=== PATIENT | male | born 1990 | race African-American/Black ===

== ENCOUNTER 2017-10-27 20:50 | Emergency (ER) | payer OTHER ==
[2017-10-27] MEDS ORDERED: IBUPROFEN 600 MG TABLET PO ONE (21:07)
[2017-10-27] MEDS ORDERED: ACETAMINOPHEN 325 MG TABLET PO ONE (21:08)
--- NOTE | 2017-10-27 21:12 | ER Document Report ---
ED GI/ - General Chief Complaint: Testicular Problem Stated Complaint: TESTICLE PAIN Time Seen by Provider: 10/27/17 21:03 Notes: The patient is a 27-year-old male who presents with 30 minutes of right-sided testicular pain and swelling that started after he was bowling tonight. He has never had this before. He had unprotected intercourse 2 weeks ago, but denies penile discharge, hematuria or dysuria. TRAVEL OUTSIDE OF THE [place] IN LAST 30 DAYS: No - Related Data Allergies/Adverse Reactions: shellfish derived Allergy (Verified 10/27/17 21:04) Past Medical History - General Information source: Patient - Social History Smoking Status: Current Every Day Smoker Chew tobacco use (# tins/day): No Frequency of alcohol use: None Drug Abuse: None Family History: Reviewed & Not Pertinent Patient has suicidal ideation: No Patient has homicidal ideation: No Renal/ Medical History: Denies: Hx Peritoneal Dialysis Review of Systems - Review of Systems Notes: REVIEW OF SYSTEMS: CONSTITUTIONAL: -fevers, -chills EENT: -eye pain, -difficulty swallowing, -nasal congestion CARDIOVASCULAR: -chest pain, -syncope. RESPIRATORY: -cough, -SOB GASTROINTESTINAL: -abdominal pain, -nausea, -vomiting, -diarrhea GENITOURINARY: -dysuria, -hematuria, +right testicular pain MUSCULOSKELETAL: -back pain, -neck pain SKIN: -rash or skin lesions. HEMATOLOGIC: -easy bruising or bleeding. LYMPHATIC: -swollen, enlarged glands. NEUROLOGICAL: -altered mental status or loss of consciousness, -headache, - neurologic symptoms PSYCHIATRIC: -anxiety, -depression. ALL OTHER SYSTEMS REVIEWED AND NEGATIVE. Physical Exam - Vital signs Vitals: Temp Pulse Resp BP Pulse Ox 99.3 F 81 20 150/96 H 98 10/27/17 20:58 10/27/17 20:58 10/27/17 20:58 10/27/17 20:58 10/27/17 20:58 - Notes Notes: PHYSICAL EXAMINATION: GENERAL: Well-appearing, well-nourished and in no acute distress. HEAD: Atraumatic, normocephalic. EYES: Pupils equal round and reactive to light, extraocular movements intact, sclera anicteric, conjunctiva are normal. ENT: nares patent, oropharynx clear without exudates. Moist mucous membranes. NECK: Normal range of motion, supple without lymphadenopathy LUNGS: Breath sounds clear to auscultation bilaterally and equal. No wheezes rales or rhonchi. HEART: Regular rate and rhythm without murmurs ABDOMEN: Soft, nontender, normoactive bowel sounds. No guarding, no rebound. No masses appreciated. : Tenderness over right testicle, normal lie of right testicle. No tenderness over epididymis. No hernia palpated. No penile discharge or lesions. EXTREMITIES: Normal range of motion, no pitting or edema. No cyanosis. NEUROLOGICAL: Cranial nerves grossly intact. Normal speech, normal gait. Normal sensory and motor exams. PSYCH: Normal mood, normal affect. SKIN: Warm, Dry, normal turgor, no rashes or lesions noted. Course - Re-evaluation Re-evalutation: With sudden onset of right testicular pain, concern for torsion, although the testicle has normal lie and he had normal cremasteric reflexes. His ultrasound does not show any evidence of torsion, epididymitis or masses. Instructed him about anti-inflammatories, scrotal support and if his gonorrhea/chlamydia urine is positive tomorrow, he will receive a call. Given strict return precautions and he understands. - Vital Signs Vital signs: Temp Pulse Resp BP Pulse Ox 99.3 F 81 20 150/96 H 98 10/27/17 20:58 10/27/17 20:58 10/27/17 20:58 10/27/17 20:58 10/27/17 20:58 - Laboratory Laboratory results interpreted by me: 10/27/17 21:13 Urine Urobilinogen 4.0 H - Diagnostic Test Radiology reviewed: Image reviewed, Reports reviewed Radiology results interpreted by me: Scrotal US: Normal Discharge - Discharge Clinical Impression: Testicular pain, right Condition: Stable Disposition: HOME, SELF-CARE Additional Instructions: Your ultrasound does not show any evidence of testicular torsion or mass. Wear a jock strap or briefs and take anti-inflammatories, such as Motrin or Naprosyn , to help with your pain. Follow-up with the urologist if not better. Forms: Elevated Blood Pressure Referrals: [facility] [Provider Group] - Follow up as needed
[2017-10-27 21:49] LABS: APPEARANCE,URINE CLEAR; BILIRUBIN,URINE NEGATIVE (NEGATIVE); COLOR,URINE YELLOW; GLUCOSE, URINE NEGATIVE (NEGATIVE); KETONES,URINE NEGATIVE (NEGATIVE); LEUKOCYTE ESTERASE,URINE NEGATIVE (NEGATIVE); NITRITE,URINE NEGATIVE (NEGATIVE); PROTEIN,URINE NEGATIVE (NEGATIVE); URINE SPECIFIC GRAVITY 1.027
--- NOTE | 2017-10-27 22:17 | RADIOLOGY REPORT (SQ) ---
EXAM DESCRIPTION: U/S SCROTUM W/DOPPLER COMPLETED DATE/TIME: 10/27/2017 10:01 pm REASON FOR STUDY: right testicular pain COMPARISON: None. TECHNIQUE: Static and realtime zamora scale imaging of the scrotum and testes. Selected color Doppler and spectral images recorded to document blood flow. LIMITATIONS: None. FINDINGS: RIGHT: TESTICLE: Normal size. Normal echotexture. Normal blood flow. No mass. EPIDIDYMIS: Normal. HYDROCELE OR VARICOCELE: No. HERNIA OR EXTRA-TESTICULAR MASS: No. OTHER: No other significant finding. LEFT: TESTICLE: Normal size. Normal echotexture. Normal blood flow. No mass. EPIDIDYMIS: Normal. HYDROCELE OR VARICOCELE: No. HERNIA OR EXTRA-TESTICULAR MASS: No. OTHER: No other significant finding. IMPRESSION: NO EVIDENCE OF TESTICULAR MASS OR TORSION. TECHNICAL DOCUMENTATION: JOB ID: [id number] [place]-72 2010 [employer]- All Rights Reserved
[2017-10-27 22:27] VITALS: BP 138/87
[2017-10-27 23:22] LABS: CHLAM PCR NOT DETECTED (NOT DETECT); GON PCR NOT DETECTED (NOT DETECT)
== END 2017-10-27 22:27 | disposition home or self-care (01) ==
LOC: ER 20:50
DX: N50.811 Right testicular pain (principal); F17.200 Nicotine dependence, unspecified, uncomplicated
CPT/HCPCS: 76870; 81001; 87491; 87591; 93976; 99284

== ENCOUNTER 2020-02-20 04:45 | Observation (INO) | payer SELFPAY ==
[2020-02-20] MEDS ORDERED: HYDROMORPHONE HCL INJ/PF 2 MG/ML AMPULE IV ONE (05:13)
[2020-02-20] MEDS ORDERED: ONDANSETRON HCL INJ/PF 4 MG/2 ML SDV IV ONE (05:13)
[2020-02-20] MEDS ORDERED: MIDAZOLAM 2 MG/2 ML INJ IV ONE (05:14)
[2020-02-20] MEDS ORDERED: MIDAZOLAM 2 MG/2 ML INJ ONE ×2 (05:15→15:33)
--- NOTE | 2020-02-20 05:22 | RADIOLOGY REPORT (SQ) ---
EXAM DESCRIPTION: XR HAND 3 OR MORE VIEWS COMPLETED DATE/TME: 02/20/2020 00:00 CLINICAL HISTORY: 29 years, Male, POSITIVE DEFORMITY COMPARISON: None. NUMBER OF VIEWS: 3 TECHNIQUE: 3 views of the right hand LIMITATIONS: None. FINDINGS: There is posterior dislocation of the second through fifth metacarpals, at the level of the carpal metacarpal joint space. Comminuted fracture at the base of the second metacarpal. Associated soft tissue swelling. IMPRESSION: Posterior dislocation of the second through fifth metacarpals. Fracture of the base of the second metacarpal. copyright 2010 [employer]- All Rights Reserved
[2020-02-20] MEDS ORDERED: ETOMIDATE INJ/PF 20 MG/10 ML SDV IV ONE (05:37)
--- NOTE | 2020-02-20 05:53 | ER Document Report ---
Entered by SAMAN ÓLPEZ SCRIBE 02/20/20 0541 Acting as scribe for:WARNER AMBROSIO IV, MD ED Hand/Wrist Injury - General Chief Complaint: Hand Injury Stated Complaint: RIGHT HAND INJURY/CANT FEEL FINGERS Time Seen by Provider: 02/20/20 05:13 Mode of Arrival: Ambulatory Information source: Patient Notes: This 29 year old male patient presents to the ED today with complaints of right hand injury that occurred around 0400 this morning. Patient states that he accid entally slammed his right hand into a truck door. He reports pain to his right hand and states that it looks deformed. He also notes numbness to his right hand and that his fingertips feel cold. He admits that he attempted to reduce the deformity on his own prior to arrival without success. Patient is right hand dominant. TRAVEL OUTSIDE OF THE [place] IN LAST 30 DAYS: No - Related Data Allergies/Adverse Reactions: shellfish derived Allergy (Verified 10/27/17 21:04) Past Medical History - General Information source: Patient, [facility], [facility] Records - Social History Smoking Status: Current Every Day Smoker Cigarette use (# per day): Yes Chew tobacco use (# tins/day): No Smoking Education Provided: No Frequency of alcohol use: Social Drug Abuse: None Family History: Reviewed & Not Pertinent Patient has suicidal ideation: No Patient has homicidal ideation: No Review of Systems - Review of Systems Constitutional: No symptoms reported EENT: No symptoms reported Cardiovascular: No symptoms reported Respiratory: No symptoms reported Gastrointestinal: No symptoms reported Genitourinary: No symptoms reported Male Genitourinary: No symptoms reported Musculoskeletal: See HPI, Deformity - Right hand, Other - Right hand pain Skin: No symptoms reported Hematologic/Lymphatic: See HPI, Other - Abrasion Neurological/Psychological: No symptoms reported -: Yes All other systems reviewed and negative Physical Exam - Vital signs Vitals: Temp 98 F 02/20/20 05:01 - General General appearance: Alert In distress: None - HEENT Head: Normocephalic, Atraumatic Eyes: Normal Pupils: PERRL - Respiratory Respiratory status: No respiratory distress Chest status: Nontender Breath sounds: Normal Chest palpation: Normal - Cardiovascular Rhythm: Regular Heart sounds: Normal auscultation Murmur: No Friction rub: No Gallop: None auscultated Pulses: Normal: Radial - 2+ Normal capillary refill: Yes - < 2 seconds in all digits of right hand - Abdominal Inspection: Normal Distension: No distension Bowel sounds: Normal Tenderness: Nontender - Abdomen soft Organomegaly: No organomegaly - Back Back: Normal, Nontender - Extremities General lower extremity: Normal inspection Hand: Abrasion - Right 2nd digit, Deformity - Obvious deformity noted to dorsal surface of right hand - Neurological Neuro grossly intact: Yes Orientation: AAOx4 - Psychological Associated symptoms: Normal affect, Normal mood - Skin Skin irregularity: other - Abrasion noted to right 2nd digit Course - Re-evaluation Re-evalutation: 02/20/20 05:53 Findings of ED MSE discussed with patient. Patient informed that he would be admitted to the orthopedic service for his hand fracture. - Vital Signs Vital signs: Temp Pulse Resp BP Pulse Ox 98 F 98 20 155/98 H 96 02/20/20 05:01 02/20/20 05:24 02/20/20 05:41 02/20/20 05:41 02/20/20 05:41 - Laboratory Result Diagrams: 02/20/20 05:54 02/20/20 05:54 Laboratory results interpreted by me: 02/20/20 05:54 WBC 11.2 H - Diagnostic Test Radiology reviewed: Reports reviewed - EKG Interpretation by Me Additional EKG results interpreted by me: 02/20/20 06:13 EKG obtained on 02/20/2020 at 0554 hrs. was interpreted by this MD. Findings: Rate 94, left bundle branch block is present. No prior EKG is available for comparison. Impression EKG with rate of 94 and left bundle branch block of unknown chronicity - Consults dr. duarte Time consulted: 05:40 - dr. duarte agreed to admit pt, Reason for consultation: 02/20/20 05:56 right hand fracture/dislocation dr. joleen duarte Time consulted: 06:00 - dr. duarte requested cardiology consultation Reason for consultation: 02/20/20 06:[address] duarte of ekg findings (LBBB) dr. roslyn benites Time consulted: 06:05 - dr. benites agreed to consult patient; stated that incidental finding of conduction abnormality without chest pain unlikely to increase perioperative risk. Reason for consultation: 02/20/20 06:07 LBBB on EKG - Transfer of Care Care transferred to following provider: dr. calhoun Procedures - Conscious Sedation Conscious sedation Time started: 05:24 Time completed: 05:40 Consent obtained: Yes Indication: fracture dislocation right hand Normal healthy pt.: P1. - ASA Classification Airway Evaluation: Normal anatomy Mallampati Classification: Class 1 Used during procedure: Suction available, IV access obtained, Pulse ox on pt., senior reactor operator on pt. Medications administered: Versed, Other - dilaudid Reversal agents: None I personally performed/intraservice time: Sedation, Procedure, 30 min or less Complications: No - Joint Reduction/Fracture Care Right Hand Time completed: 05:40 Consent obtained: Yes Conscious sedation: Yes Pre-procedure NV exam: Yes - nvi Fracture: Closed Post-procedure NV exam: Yes - nvi Reduction attempts: 2 - unsuccessful reduction attempts Complications: No Discharge - Discharge Clinical Impression: Left bundle branch block (LBBB) Closed right hand fracture Qualifiers: Encounter type: initial encounter Qualified Code(s): S62.91XA - Unspecified fracture of right wrist and hand, initial encounter for closed fracture Condition: Good Disposition: ADMITTED OBSERVATION Admitting Provider: dr. duarte, orthopedics Unit Admitted: Surgical Floor I personally performed the services described in the documentation, reviewed and edited the documentation which was dictated to the scribe in my presence, and it accurately records my words and actions.
--- NOTE | 2020-02-20 06:15 | RADIOLOGY REPORT (SQ) ---
EXAM DESCRIPTION: [facility]: XR CHEST 1 VIEW CLINICAL HISTORY: 29 years Male; pre-op; COMPARISON: None. FINDINGS: Lungs: Lungs are clear, with no focal infiltrate, pneumothorax, or pleural effusion. Mediastinum: Mediastinum is within normal limits for this positioning. Bones: Bony structures are unremarkable. IMPRESSION: 1. No acute pulmonary findings.
[2020-02-20 06:25] LABS: ABSOLUTE BASOPHILS # (AUTO) 0.1 10^3/uL (0.0-0.2); ABSOLUTE LYMPHOCYTES (AUTO) 2.4 10^3/uL (0.5-4.7); ABSOLUTE MONOCYTES (AUTO) 0.9 10^3/uL (0.1-1.4); ABSOLUTE NEUT (AUTO) 7.8 10^3/uL (1.7-8.2); BASOPHILS % (AUTO) 0.5 % (0-2); EOSINOPHILS % (AUTO) 0.4 % (0-6); HEMOGLOBIN 14.1 g/dL (13.5-17.0); LYMPHOCYTES % (AUTO) 21.8 % (13-45); MEAN CORPUSCULAR HEMOGLOBIN 31.6 pg (27.0-33.4); MEAN CORPUSCULAR HGB CONC 35.3 g/dL (32.0-36.0); MEAN CORPUSCULAR VOLUME 90 fl (80-97); MONOCYTES % (AUTO) 7.8 % (3-13); PLATELET COUNT 199 10^3/uL (150-450); RED BLOOD COUNT 4.47 10^6/uL (4.35-5.55); RED CELL DISTRIBUTION WIDTH 13.8 % (11.5-14.0); SEGMENTED NEUTROPHILS % (AUTO) 69.5 % (42-78); TOTAL CELLS COUNTED % (AUTO) 100 %; WHITE BLOOD COUNT 11.2 10^3/uL (4.0-10.5)
[2020-02-20 06:44] LABS: ALBUMIN 3.6 g/dL (3.5-5.0); ALKALINE PHOSPHATASE 51 U/L (38-126); ANION GAP 7 (5-19); ASPARTATE AMINO TRANSFERASE 31 U/L (17-59); BILIRUBIN,TOTAL 0.6 mg/dL (0.2-1.3); BLOOD UREA NITROGEN 8 mg/dL (7-20); CALCIUM 8.6 mg/dL (8.4-10.2); CARBON DIOXIDE 23 mmol/L (22-30); CHLORIDE 109 mmol/L (98-107); GLUCOSE 108 mg/dL (75-110); POTASSIUM 3.7 mmol/L (3.6-5.0)
--- NOTE | 2020-02-20 07:22 | EKG REPORT ---
SEVERITY:- ABNORMAL ECG - SINUS RHYTHM LEFT BUNDLE BRANCH BLOCK : Confirmed by: Casey Palumbo MD 20-Feb-2020 07:22:02
[2020-02-20] MEDS ORDERED: DEXTROSE 40% GEL 15 GM TUBE PO PRN ×2 (07:55)
[2020-02-20] MEDS ORDERED: DEXTROSE 50%-WATER 25 GM/50 ML DISP.SYRIN IV PRN ×2 (07:55)
[2020-02-20] MEDS ORDERED: GLUCAGON,HUMAN RECOMB 1 MG INJ SUBCUT PRN (07:55)
[2020-02-20] MEDS ORDERED: RINGERS SOLUTION,LACTATED 1,000 ML IV PRN (07:55)
--- NOTE | 2020-02-20 07:55 | PDOC H&P ---
History of Present Illness Admission Date/PCP: 02/20/20 06:05 Patient complains of: Right hand injury History of Present Illness: AVIVA TAI is a 29 year old male who early this morning sustained a crush injury to his right hand when he got hit in a truck door. Patient states he had a notable deformity attempted to reduce the deformity which was not successful. Presented emergency room where x-rays demonstrate dislocation. Patient was sedated and closed reduction was attempted but unsuccessful. Patient states his pain is 6/10. Denies numbness or tingling. Social History Smoking Status: Current Every Day Smoker Family History Family History: Reviewed & Not Pertinent Parental Family History Reviewed: No Children Family History Reviewed: No Sibling(s) Family History Reviewed.: No Medication/Allergy Home Medications: No Home Medications 10/27/17 Allergies/Adverse Reactions: shellfish derived Allergy (Verified 10/27/17 21:04) Review of Systems Constitutional: ABSENT: chills, fever(s), headache(s), weight gain, weight loss Eyes: ABSENT: visual disturbances Ears: ABSENT: hearing changes Cardiovascular: ABSENT: chest pain, dyspnea on exertion, edema, orthropnea, palpitations Respiratory: ABSENT: cough, hemoptysis Gastrointestinal: ABSENT: abdominal pain, constipation, diarrhea, hematemesis, hematochezia, nausea, vomiting Genitourinary: ABSENT: dysuria, hematuria Musculoskeletal: PRESENT: as per HPI Integumentary: ABSENT: rash, wounds Neurological: ABSENT: abnormal gait, abnormal speech, confusion, dizziness, focal weakness, syncope Psychiatric: ABSENT: anxiety, depression, homidical ideation, suicidal ideation Endocrine: ABSENT: cold intolerance, heat intolerance, menstrual abnormalities, polydipsia, polyuria Hematologic/Lymphatic: ABSENT: easy bleeding, easy bruising, lymphadenopathy Physical Exam Vital Signs: Temp Pulse Resp BP Pulse Ox 98 F 74 21 H 146/95 H 99 02/20/20 05:01 02/20/20 07:26 02/20/20 07:26 02/20/20 07:26 02/20/20 07:26 Intake & Output 02/19/20 02/20/20 02/21/20 06:59 06:59 06:59 Weight 85.729 kg General appearance: PRESENT: no acute distress, well-developed, well-nourished Head exam: PRESENT: atraumatic, normocephalic Eye exam: PRESENT: conjunctiva pink, EOMI, PERRLA. ABSENT: scleral icterus Ear exam: PRESENT: normal external ear exam Mouth exam: PRESENT: moist, tongue midline Neck exam: PRESENT: full ROM. ABSENT: carotid bruit, JVD, lymphadenopathy, thyromegaly Respiratory exam: PRESENT: unlabored Cardiovascular exam: PRESENT: RRR. ABSENT: diastolic murmur, rubs, systolic murmur Pulses: PRESENT: normal dorsalis pedis pul, +2 pedal pulses bilateral Vascular exam: PRESENT: normal capillary refill GI/Abdominal exam: PRESENT: normal bowel sounds, soft. ABSENT: distended, guarding, mass, organolmegaly, rebound, tenderness Rectal exam: PRESENT: deferred Musculoskeletal exam: PRESENT: other - Right hand: In volar resting splint. Intact flexion-extension of the IP joints however limited given immobilization. Compartment soft and compressible no sign of compartment syndrome. No pain with passive extension. Appropriate tenderness to palpation. Cap refill less than 2 seconds. Intact sensation to sharp versus dull touch. Neurological exam: PRESENT: alert, awake, oriented to person, oriented to place, oriented to time, oriented to situation, CN II-XII grossly intact. ABSENT: motor sensory deficit Psychiatric exam: PRESENT: appropriate affect, normal mood. ABSENT: homicidal ideation, suicidal ideation Skin exam: PRESENT: dry, intact, warm. ABSENT: cyanosis, rash Results Laboratory Results: 02/20/20 05:54 02/20/20 05:54 02/20/20 02/20/20 02/20/20 05:54 05:54 05:54 WBC 11.2 H RBC 4.47 Hgb 14.1 Hct 40.0 MCV 90 MCH 31.6 MCHC 35.3 RDW 13.8 Plt Count 199 Seg Neutrophils % 69.5 Sodium 138.8 Potassium 3.7 Chloride 109 H Carbon Dioxide 23 Anion Gap 7 BUN 8 Creatinine 0.79 Est GFR ( Amer) > 60 Glucose 108 Calcium 8.6 Total Bilirubin 0.6 AST 31 Alkaline Phosphatase 51 Total Protein 6.0 L Albumin 3.6 Blood Type AB POSITIVE Antibody Screen NEGATIVE 02/20/20 05:54 Troponin I < 0.012 Impressions: Hand X-Ray 02/20/20 00:00 IMPRESSION: Posterior dislocation of the second through fifth metacarpals. Fracture of the base of the second metacarpal. copyright 2011 [employer]- All Rights Reserved Chest X-Ray 02/20/20 05:48 IMPRESSION: 1. No acute pulmonary findings. Status: Image reviewed by me - I have reviewed patient's radiographs consistent with fracture dislocation of the second through fifth CMC joint with avulsion noted along the base of the second metacarpal. Assessment & Plan - Diagnosis (1) Carpometacarpal joint dislocation Qualifiers: Encounter type: initial encounter Laterality: right Qualified Code(s): S63.054A - Dislocation of other carpometacarpal joint of right hand, initial encounter Is this a current diagnosis for this admission?: Yes Plan: Patient sustained a significant second through fifth carpometacarpal fracture dislocation. Given the amount of displacement and unsuccessful treatment with close reduction I have recommended operative intervention which includes closed versus open reduction to fixation second through fifth carpometacarpal dislocation. Given the severity of patient's injury he understands future sequelae and prognosis including development of posttraumatic arthritis, residual instability, postoperative pain, decreased range of motion, hardware complication, infection and neurovascular injury. Patient is verbalized understanding and consented for surgical procedure.
[2020-02-20] MEDS ORDERED: ONDANSETRON HCL INJ/PF 4 MG/2 ML SDV IV PRN (07:57)
[2020-02-20] MEDS: MORPHINE SULFATE 10 MG/ML INJ IV PRN ×3 (09:10→18:49)
--- NOTE | 2020-02-20 09:17 | PDOC CONSULTATION ---
Consultation Consult Date: 02/20/20 Provider Consulted: CELINA WILKERSON Consult reason:: Abnormal EKG History of Present Illness Admission Date/PCP: 02/20/20 06:05 Patient complains of: Right arm pain History of Present Illness: AVIVA TAI is a 29 year old male With no significant prior medical history presents for surgical treatment for closed fracture and dislocation of right hand. Patient reports that this injury happened as he was trying to close the door on his truck. No fall is reported. No significant prior medical history is reported. No childhood illnesses. Patient is adopted and is not knowledgeable about family history of his biological parents or siblings. No surgeries reported Patient used to be in the [employer] and then subsequently is in the [employer]. 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 He has never been told that he had an abnormal EKG. There is no mention of palpitations syncope presyncope chest pain or dyspnea. No effort limitation is reported He drinks alcohol socially. He smokes a pack of cigarettes per day. Social History Smoking Status: Current Every Day Smoker Family History Family History: Reviewed & Not Pertinent Parental Family History Reviewed: No - Patient is adopted. Unknown family history Children Family History Reviewed: NA Sibling(s) Family History Reviewed.: NA Medication/Allergy Home Medications: No Home Medications 10/27/17 Allergies/Adverse Reactions: shellfish derived Allergy (Verified 10/27/17 21:04) Review of Systems Constitutional: PRESENT: as per HPI Cardiovascular: ABSENT: as per HPI, chest pain, dyspnea on exertion, edema, orthropnea, palpitations, other Respiratory: ABSENT: as per HPI, cough, dyspnea, hemoptysis, sputum, other Integumentary: PRESENT: other - Right forearm and hand pain Physical Exam Vital Signs: Temp Pulse Resp BP Pulse Ox 97.9 F 75 20 145/97 H 100 02/20/20 08:06 02/20/20 08:06 02/20/20 08:06 02/20/20 08:06 02/20/20 08:03 Intake & Output 02/19/20 02/20/20 02/21/20 06:59 06:59 06:59 Weight 85.729 kg 86.2 kg General appearance: PRESENT: no acute distress, well-developed, well-nourished Head exam: PRESENT: atraumatic, normocephalic Eye exam: PRESENT: conjunctiva pink, EOMI Mouth exam: PRESENT: moist Respiratory exam: PRESENT: symmetrical Cardiovascular exam: PRESENT: RRR, +S1, +S2 Pulses: PRESENT: normal radial pulses GI/Abdominal exam: PRESENT: soft Rectal exam: PRESENT: deferred Musculoskeletal exam: PRESENT: deformity - Right forearm is immobilized and bandaged Neurological exam: PRESENT: alert, awake, oriented to person, oriented to place, oriented to time, oriented to situation Psychiatric exam: PRESENT: appropriate affect Skin exam: PRESENT: dry, intact, normal color Results Laboratory Results: 02/20/20 05:54 02/20/20 05:54 02/20/20 02/20/20 02/20/20 05:54 05:54 05:54 WBC 11.2 H RBC 4.47 Hgb 14.1 Hct 40.0 MCV 90 MCH 31.6 MCHC 35.3 RDW 13.8 Plt Count 199 Seg Neutrophils % 69.5 Sodium 138.8 Potassium 3.7 Chloride 109 H Carbon Dioxide 23 Anion Gap 7 BUN 8 Creatinine 0.79 Est GFR ( Amer) > 60 Glucose 108 Calcium 8.6 Total Bilirubin 0.6 AST 31 Alkaline Phosphatase 51 Total Protein 6.0 L Albumin 3.6 Blood Type AB POSITIVE Antibody Screen NEGATIVE 02/20/20 05:54 Troponin I < 0.012 EKG Comments: Twelve-lead EKG 02/20/2020. Independently reviewed by me. Sinus rhythm, preexcitation, likely right anteroseptal pathway, sinus rate is 94 bpm Hand x-ray 02/20/2020 Posterior dislocation of the second through fifth metacarpals and fracture of the base of the second metacarpal Chest x-ray 02/20/2020 No acute findings Creatinine is 0.79 Platelet 199 Hemoglobin and hematocrit 14.1 and 40 Impressions: Hand X-Ray 02/20/20 00:00 IMPRESSION: Posterior dislocation of the second through fifth metacarpals. Fracture of the base of the second metacarpal. copyright 2011 [employer]- All Rights Reserved Chest X-Ray 02/20/20 05:48 IMPRESSION: 1. No acute pulmonary findings. 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 There is no reported palpitations, syncope or presyncope. Given the above should proceed with surgery without further re-stratification or modifications in therapy. (2) Preop cardiovascular exam Is this a current diagnosis for this admission?: Yes Plan: No effort limitation. No significant prior medical history. Acceptable risk for planned surgery without further re-stratification EKG shows incidental finding of WPW pattern without no symptoms suggestive of arrhythmia This should not pose a problem for this surgery. No additional modifications or precautions necessary.
[2020-02-20] MEDS ORDERED: BUPIVACAINE HCL 0.5 % INJ/PF 30 ML SDV ONE ×2 (11:56→16:00)
[2020-02-20] MEDS ORDERED: LIDOCAINE 1% INJ-PF (10 MG/ML) 30 ML SDV ONE (11:56)
--- NOTE | 2020-02-20 13:57 | XCELERA REPORT ---
[address] [address] Transthoracic Echocardiogram Report Name: AVIVA TAI Age: 29 yrs Gender: Male : 1990 Patient Status: Inpatient Patient Location: [address] [place], [place] [address] Study Date: 02/20/2020 11:26 AM History: Pre-Op Abnormal EKG Height: 70 in Weight: 190 lb BSA: 2.0 m2 Procedure: A complete two-dimensional transthoracic echocardiogram was performed (2D, M-mode, spectral and color flow Doppler). The study was technically adequate with some images being suboptimal in quality. Reason For Study: WPW EKG ABNORMALITY PRE OP Previous Evaluation: No previous studies were available. History: WPW pattern. Ordering Physician: CELINA WILKERSON Performed By: Estefania Stewart Interpretation Summary Left ventricular systolic function is low normal. The Ejection Fraction estimate is 55-60% The right ventricle is normal in size and function. There is a trace amount of mitral regurgitation There is no aortic valve stenosis There is a trace amount of tricuspid regurgitation Doppler findings do not suggest pulmonary hypertension. There is no pericardial effusion. MMode/2D Measurements & Calculations RVDd: 2.1 cm LVIDd: 5.0 cm FS: 24.8 % Ao root diam: IVSd: 1.5 cm LVIDs: 3.7 cm EDV(Teich): 3.1 cm LVPWd: 1.5 cm 117.4 ml Ao root area: ESV(Teich): 7.4 cm2 60.0 ml EF(Teich): 48.9 % EDV(MOD-sp4): SV(MOD-sp4): 110.7 ml 49.3 ml ESV(MOD-sp4): 61.4 ml EF(MOD-sp4): 44.5 % Doppler Measurements & Calculations MV E max eugenia: MV dec slope: Ao V2 max: LV V1 max P.0 cm/sec 133.8 cm/sec 4.4 mmHg MV A max eugenia: 461.4 cm/sec2 Ao max P.2 mmHgLV V1 max: 36.2 cm/sec MV dec time: 0.16 sec 105.2 cm/sec MV E/A: 2.1 PA V2 max: PI end-d eugenia: TR max eugenia: 78.1 cm/sec 101.2 cm/sec 255.8 cm/sec PA max P.4 mmHg TR max P.4 mmHg Left Ventricle The left ventricle is normal in size. There is moderate concentric left ventricular hypertrophy. Left ventricular systolic function is low normal. The Ejection Fraction estimate is 55-60%. Doppler measurements suggest normal left ventricular diastolic function. The left ventricular wall motion is normal. Right Ventricle The right ventricle is normal in size and function. Atria The right atrium is normal. The left atrial size is normal. The interatrial septum is intact with no evidence for an atrial septal defect. Mitral Valve The mitral valve is grossly normal. There is no mitral valve stenosis. There is a trace amount of mitral regurgitation. Aortic Valve The aortic valve is normal in structure and function. The aortic valve is trileaflet. The aortic valve opens well. There is no aortic valve stenosis. No aortic regurgitation is present. Tricuspid Valve The tricuspid valve is normal in structure and function. There is no tricuspid stenosis. There is a trace amount of tricuspid regurgitation. Doppler findings do not suggest pulmonary hypertension. Best estimated RVSP is approximately 25-30 mm Hg mm/Hg. Pulmonic Valve The pulmonic valve is normal in structure and function. There is no pulmonic valvular stenosis. There is a trace amount of pulmonic regurgitation. Great Vessels The aortic root is normal size. The inferior vena cava appeared normal and decreased > 50% with respiration (RAP 5-10 mmHg). Effusions There is no pericardial effusion. : CELINA WILKERSON Anil
[2020-02-20] MEDS ORDERED: FENTANYL CITRATE INJ/PF 100 MCG/2 ML AMPUL ONE (15:33)
[2020-02-20] MEDS ORDERED: LIDOCAINE 2% INJ-PF (20 MG/ML) 10 ML AMPUL ONE (15:33)
[2020-02-20] MEDS ORDERED: PROPOFOL INJ 200 MG/20 ML VIAL IV ONE (15:33)
[2020-02-20] MEDS ORDERED: ONDANSETRON HCL INJ/PF 4 MG/2 ML SDV ONE (15:33)
[2020-02-20] MEDS ORDERED: CEFAZOLIN INJ 1 GM VIAL ONE (16:26)
[2020-02-20] MEDS ORDERED: PROMETHAZINE HCL INJ 25 MG/1 ML VIAL IV PRN ×2 (16:56)
[2020-02-20] MEDS ORDERED: DIPHENHYDRAMINE HCL 50 MG/ML VIAL IV PRN (16:56)
[2020-02-20] MEDS ORDERED: MORPHINE SULFATE 10 MG/ML INJ IV PRN (16:56)
[2020-02-20] MEDS ORDERED: FENTANYL CITRATE INJ/PF 100 MCG/2 ML AMPUL IV PRN ×3 (16:56)
[2020-02-20] MEDS ORDERED: OXYCODONE-ACETAMINOPHEN 5-325 MG TABLET PO PRN ×2 (16:56)
[2020-02-20] MEDS ORDERED: MEPERIDINE HCL/PF INJ 25 MG/1 ML DISP.SYRIN IV PRN (16:56)
[2020-02-20] MEDS ORDERED: HYDROMORPHONE HCL INJ/PF 2 MG/ML AMPULE ONE (17:18)
--- NOTE | 2020-02-20 17:34 | Operative Report ---
Operative Report DATE OF SURGERY: 02/20/20 PREOPERATIVE DIAGNOSIS: Right secondfifth carpometacarpal dislocation POSTOPERATIVE DIAGNOSIS: Same OPERATION: Open reduction percutaneous pinning right secondfifth carpometacarpal dislocation SURGEON: MEHRAN CRAIG ANESTHESIA: GA COMPLICATIONS: None ESTIMATED BLOOD LOSS: Minimal PROCEDURE: Indication for above physical 29-year-old man who sustained a crush injury to his right hand when it was hit into a truck door. Patient was seen in the emergency room where x-rays demonstrate secondfifth CMC joint dislocation. Closed reduction was attempted without success in the emergency room. Patient was found to have a left bundle branch block on EKG and thus required echocardiogram according to anesthesia delaying surgical procedure. Once medically cleared risk and benefits of the surgical procedure were explained patient verbalized understanding consented for surgical procedure. Procedure In Detail: Patient was seen and evaluated in the preoperative holding area. The RIGHT upper extremity was initialized and marked. Patient received 2g of Ancef IV for bacterial prophylaxis. Patient was taken back to the operative room where transferred to the operative table and placed under general anesthesia. Once they were adequately anesthetized a nonsterile tourniquet was placed on the upper extremity. A surgical team debriefing was performed ensuring all instrumentation was available, the surgical procedure was discussed with possible concerns reviewed. The upper extremity was prepped with chlorhexidine and alcohol and draped in a sterile fashion. A timeout was done identifying correct patient, procedure and extremity everyone in attendance agree with this and verbalized no concerns. The extremity was exsanguinated the tourniquet was inflated to 250 mmHg. Close reduction was attempted which did adequately reduced second, fourth and fifth CMC dislocations there was residual redundant dorsal subluxation of the third metacarpal and thus open reduction was performed with a small stab incision was made over the base of the third CMC joint. Blunt dissection was performed. Extensor tendons were retracted and third metacarpal was reduced. 0.045 K wire was placed from the fifth CMC joint into the hamate and capitate a second 0.045 K wire was then placed from the fifth into the fourth into the third metacarpals maintaining reduction of the ulnar CMC joints. While maintaining dorsally applied pressure to the second metacarpal base a 0.062 K wires placed from the second metacarpal base into the capitate to provide provisional fixation. Final fixation was then achieved to the second and third rays while utilizing the metacarpal recess and placing a 0.045 K wire intramedullary into the metacarpal shaft obtaining fixation injury trapezoid and capitate respectively. C arm fluoroscopy including AP, lateral and obliques were obtained confirming reduction of the CMC joint dislocation. The ulnar K wires were cut below the skin. 6 2 K wire was left outside the skin. The intramedullary K wires were left outside the skin at the second webspace and cut. 20 cc of 0.5% bupivacaine without epinephrine was injected for postoperative pain control. Wound was dressed Xeroform for first and patient was placed in a volar resting splint with the IP joints free. Tourniquet was deflated patient had normal peripheral perfusion. Sponge counts, instrument counts, needle counts were correct. Patient was then awoken from anesthesia. Transferred from the operating room table to the operating room stretcher. There was no intraoperative complications patient tolerated procedure well stable to PACU.
--- NOTE | 2020-02-20 17:54 | RADIOLOGY REPORT (SQ) ---
EXAM DESCRIPTION: NO CHG FLUORO; HAND RIGHT 3 VIEWS IMAGES COMPLETED DATE/TIME: 02/20/2020 5:44 pm REASON FOR STUDY: PERC PINNING RT HAND COMPARISON: None. FLUOROSCOPY TIME: 1 minutes 34 seconds 5 Images saved to PACS LIMITATIONS: None. PROCEDURE: Percutaneous pinning FINDINGS: Images from fluoro document the procedure. IMPRESSION: Percutaneous pinning. Refer to operative note for further information. COMMENT: PQRS 6045F: Fluoroscopy time of the procedure is documented in the report. TECHNICAL DOCUMENTATION: JOB ID: [id number] 2010 [employer]- All Rights Reserved Reading location - IP/workstation name: [email or web address]
--- NOTE | 2020-02-20 17:54 | RADIOLOGY REPORT (SQ) ---
EXAM DESCRIPTION: NO CHG FLUORO; HAND RIGHT 3 VIEWS IMAGES COMPLETED DATE/TIME: 02/20/2020 5:44 pm REASON FOR STUDY: PERC PINNING RT HAND COMPARISON: None. FLUOROSCOPY TIME: 1 minutes 34 seconds 5 Images saved to PACS LIMITATIONS: None. PROCEDURE: Percutaneous pinning FINDINGS: Images from fluoro document the procedure. IMPRESSION: Percutaneous pinning. Refer to operative note for further information. COMMENT: PQRS 6045F: Fluoroscopy time of the procedure is documented in the report. TECHNICAL DOCUMENTATION: JOB ID: [id number] 2010 [email or web address]- All Rights Reserved Reading location - IP/workstation name: [email or web address]
[2020-02-20 19:15] VITALS: BP 170/82
== END 2020-02-20 20:44 | disposition home or self-care (01) ==
LOC: ER 04:45 → EH 06:05 → INTOOBSV 06:05 → 3N 08:04
PROVIDERS: ATTEND Orthopaedic Surgery
DX: S63.054A Dislocation of other carpometacarpal joint of right hand, initial encounter (principal); W23.0XXA Caught, crushed, jammed, or pinched between moving objects, initial encounter; R94.31 Abnormal electrocardiogram [ECG] [EKG]; F17.210 Nicotine dependence, cigarettes, uncomplicated; Z01.810 Encounter for preprocedural cardiovascular examination; I44.7 Left bundle-branch block, unspecified; Z03.818 Encounter for observation for suspected exposure to other biological agents ruled out
CPT/HCPCS: 26676; 93005; 99284; 99152; 96374; 96375; 86900; 86901; 36415; 86850; 85025; 87635; 80053; 84484; 93306; 71045; 73130; 93010; 99140; 01830; 26605; G0378; C1713 ×2; J2250; J3490 ×2; J0690; J3010; J2270; J1170; J2405; J7120; J2704; C9803